=== PATIENT | female | born 1975 | race Asian ===

== ENCOUNTER 2021-01-07 16:15 | Emergency (ER) | payer OTHER ==
[2021-01-07 17:17] VITALS: TEMP 98.6
[2021-01-07] MEDS ORDERED: LORazepam 2 MG/ML INJ IV STA (18:38)
--- NOTE | 2021-01-07 18:42 | ED ---
General Adult HPI - General Chief complaint: Chest Pain Stated complaint: Abnormal EKG Time Seen by Provider: 01/07/21 18:15 Source: patient, RN notes reviewed, old records reviewed Mode of arrival: ambulatory Limitations: no limitations - History of Present Illness Initial comments: This is a 45-year-old female presents to the emergency department with no significant past medical history. Patient comes to the emergency department because she's been having some chest tightness for the last month and a half and she states over the last couple of years she's had similar chest tightness. Patient states is mostly in the center of her chest but occasionally it's in the back of both of her shoulders. Patient states in the past she's had massage is done and is felt better. Patient went and saw her primary medical care doctor today and she sent her into the emergency department to be evaluated. Patient states occasionally she feels some palpitations. Patient denies any fever chills or cough per patient did not difficulty flexing. Patient states she has no diaphoretic episodes. Patient denies nausea vomiting. Patient states she has a little bit of anxiety occasionally. Patient states anytime she has stress this feeling of tightness in her chest does get worse. Patient denies any swelling to the legs or calf tenderness. - Related Data Home Medications Medication Instructions Recorded Confirmed No Known Home Medications 01/07/21 01/07/21 Allergies Allergy/AdvReac Type Severity Reaction Status Date / Time Sulfa (Sulfonamide Allergy Unknown Verified 01/07/21 19:43 Antibiotics) Review of Systems ROS Statement: Those systems with pertinent positive or pertinent negative responses have been documented in the HPI. ROS Other: All systems not noted in ROS Statement are negative. Past Medical History Past Medical History: No Reported History History of Any Multi-Drug Resistant Organisms: None Reported Past Surgical History: Orthopedic Surgery Past Psychological History: No Psychological Hx Reported Smoking Status: Never smoker Past Alcohol Use History: None Reported Past Drug Use History: None Reported General Exam - General Exam Comments Initial Comments: GENERAL: Patient is well-developed and well-nourished. Patient is nontoxic and well- hydrated and is in no acute distress. ENT: Neck is soft and supple. No significant lymphadenopathy is noted. Oropharynx is clear. Moist mucous membranes. Neck has full range of motion without eliciting any pain. EYES: The sclera were anicteric and conjunctiva were pink and moist. Extraocular movements were intact and pupils were equal round and reactive to light. Ey elids were unremarkable. PULMONARY: Unlabored respirations. Good breath sounds bilaterally. No audible rales rhonchi or wheezing was noted. CARDIOVASCULAR: There is a regular rate and rhythm without any murmurs gallops or rubs. ABDOMEN: Soft and nontender with normal bowel sounds. SKIN: Skin is clear with no lesions or rashes and otherwise unremarkable. NEUROLOGIC: Patient is alert and oriented x3. Cranial nerves II through XII are grossly intact. Motor and sensory are also intact. Normal speech, volume and content. Symmetrical smile. MUSCULOSKELETAL: Normal extremities with adequate strength and full range of motion. No lower extremity swelling or edema. No calf tenderness. LYMPHATICS: No significant lymphadenopathy is noted PSYCHIATRIC: Mildly anxious Limitations: no limitations Course Vital Signs 01/07/21 01/07/21 17:14 18:54 Temperature 98.6 F Pulse Rate 106 H Pulse Rate [ 92 [employer] ] Respiratory 20 Rate Blood Pressure 121/77 O2 Sat by Pulse 97 Oximetry Medical Decision Making - Medical Decision Making EKG shows normal sinus rhythm at 86 bpm AL interval 120 QRS 74 QT interval 384 QTC is 459. EKG shows some slight ST segment depression in inferior leads. Patient also has T-wave inversions in V1 and V2 V3 in the 4 some flattening in V5 and 6 Patient was given Ativan emergency department to help relax her. Patient's chest x-ray showed no acute abnormality. It. Patient will follow-up with primary medical care doctor for further workup including echo and heart monitor and possibly a stress test. - Lab Data Result diagrams: 01/07/21 18:40 01/07/21 18:40 Lab Results 01/07/21 01/07/21 01/07/21 Range/Units 18:40 18:40 18:40 WBC 12.1 H (3.8-10.6) k/uL RBC 5.13 (3.80-5.40) m/uL Hgb 12.8 (11.4-16.0) gm/dL Hct 41.7 (34.0-46.0) % MCV 81.2 (80.0-100.0) fL MCH 24.9 L (25.0-35.0) pg MCHC 30.7 L (31.0-37.0) g/dL RDW 14.0 (11.5-15.5) % Plt Count 335 (150-450) k/uL MPV 6.7 Neutrophils % 85 % Lymphocytes % 10 % Monocytes % 3 % Eosinophils % 1 % Basophils % 0 % Neutrophils # 10.3 H (1.3-7.7) k/uL Lymphocytes # 1.3 (1.0-4.8) k/uL Monocytes # 0.4 (0-1.0) k/uL Eosinophils # 0.1 (0-0.7) k/uL Basophils # 0.1 (0-0.2) k/uL PT 10.4 (9.0-12.0) sec INR 1.0 (<1.2) APTT 26.6 (22.0-30.0) sec D-Dimer 0.30 (<0.60) mg/L FEU Sodium 138 (137-145) mmol/L Potassium 3.6 (3.5-5.1) mmol/L Chloride 104 (98-107) mmol/L Carbon Dioxide 22 (22-30) mmol/L Anion Gap 12 mmol/L BUN 5 L (7-17) mg/dL Creatinine 0.53 (0.52-1.04) mg/dL Est GFR (CKD-EPI)AfAm >90 (>60 ml/min/1.73 sqM) Est GFR (CKD-EPI)NonAf >90 (>60 ml/min/1.73 sqM) Glucose 100 H (74-99) mg/dL Calcium 9.3 (8.4-10.2) mg/dL Magnesium 1.9 (1.6-2.3) mg/dL Total Bilirubin 0.5 (0.2-1.3) mg/dL AST 23 (14-36) U/L ALT 11 (4-34) U/L Alkaline Phosphatase 107 (38-126) U/L Troponin I (0.000-0.034) ng/mL NT-Pro-B Natriuret Pep pg/mL Total Protein 8.5 H (6.3-8.2) g/dL Albumin 4.3 (3.5-5.0) g/dL 01/07/21 01/07/21 Range/Units 18:40 18:40 WBC (3.8-10.6) k/uL RBC (3.80-5.40) m/uL Hgb (11.4-16.0) gm/dL Hct (34.0-46.0) % MCV (80.0-100.0) fL MCH (25.0-35.0) pg MCHC (31.0-37.0) g/dL RDW (11.5-15.5) % Plt Count (150-450) k/uL MPV Neutrophils % % Lymphocytes % % Monocytes % % Eosinophils % % Basophils % % Neutrophils # (1.3-7.7) k/uL Lymphocytes # (1.0-4.8) k/uL Monocytes # (0-1.0) k/uL Eosinophils # (0-0.7) k/uL Basophils # (0-0.2) k/uL PT (9.0-12.0) sec INR (<1.2) APTT (22.0-30.0) sec D-Dimer (<0.60) mg/L FEU Sodium (137-145) mmol/L Potassium (3.5-5.1) mmol/L Chloride (98-107) mmol/L Carbon Dioxide (22-30) mmol/L Anion Gap mmol/L BUN (7-17) mg/dL Creatinine (0.52-1.04) mg/dL Est GFR (CKD-EPI)AfAm (>60 ml/min/1.73 sqM) Est GFR (CKD-EPI)NonAf (>60 ml/min/1.73 sqM) Glucose (74-99) mg/dL Calcium (8.4-10.2) mg/dL Magnesium (1.6-2.3) mg/dL Total Bilirubin (0.2-1.3) mg/dL AST (14-36) U/L ALT (4-34) U/L Alkaline Phosphatase (38-126) U/L Troponin I <0.012 (0.000-0.034) ng/mL NT-Pro-B Natriuret Pep 155 pg/mL Total Protein (6.3-8.2) g/dL Albumin (3.5-5.0) g/dL Disposition Clinical Impression: Atypical chest pain Disposition: HOME SELF-CARE Condition: Good Instructions (If sedation given, give patient instructions): Chest Pain (ED) Is patient prescribed a controlled substance at d/c from ED?: No Referrals: Ying Kent MD [Primary Care Provider] - 1-2 days Time of Disposition: 20:23
[2021-01-07 18:54] LABS: Basophils # (A) 0.1 k/uL (0-0.2); Basophils % (A) 0 %; Eosinophils # (A) 0.1 k/uL (0-0.7); Eosinophils % (A) 1 %; HCT 41.7 % (34.0-46.0); HGB 12.8 gm/dL (11.4-16.0); Lymphocytes # (A) 1.3 k/uL (1.0-4.8); Lymphocytes % (A) 10 %; MCH 24.9 pg (25.0-35.0); MCHC 30.7 g/dL (31.0-37.0); MCV 81.2 fL (80.0-100.0); Mean Platelet Volume 6.7; Monocytes # (A) 0.4 k/uL (0-1.0); Monocytes % (A) 3 %; Neutrophils # (A) 10.3 k/uL (1.3-7.7); Neutrophils % (A) 85 %; Platelet Count 335 k/uL (150-450); RBC 5.13 m/uL (3.80-5.40); WBC 12.1 k/uL (3.8-10.6)
[2021-01-07 19:10] LABS: ALT 11 U/L (4-34); AST 23 U/L (14-36); African American GFR (CKD) >90 (>60 ml/min/1.73 sqM); Albumin 4.3 g/dL (3.5-5.0); Alkaline Phosphatase 107 U/L (38-126); Anion Gap 12 mmol/L; Blood Urea Nitrogen 5 mg/dL (7-17); Calcium 9.3 mg/dL (8.4-10.2); Carbon Dioxide 22 mmol/L (22-30); Chloride 104 mmol/L (98-107); Glucose 100 mg/dL (74-99); Magnesium 1.9 mg/dL (1.6-2.3); Non-African American GFR(CKD) >90 (>60 ml/min/1.73 sqM); Potassium 3.6 mmol/L (3.5-5.1); Sodium 138 mmol/L (137-145); Total Bilirubin 0.5 mg/dL (0.2-1.3); Total Protein 8.5 g/dL (6.3-8.2)
[2021-01-07 19:15] LABS: Partial Thromboplastin Time 26.6 sec (22.0-30.0); Prothrombin Time 10.4 sec (9.0-12.0)
--- NOTE | 2021-01-07 20:04 | XR ---
EXAMINATION TYPE: XR chest 2V DATE OF EXAM: 01/07/2021 CLINICAL HISTORY: Chest Pain. TECHNIQUE: Frontal and lateral view of the chest. COMPARISON: None FINDINGS: The cardiomediastinal silhouette is within normal limits for size. Pulmonary vasculature i s normal. There is no focal air space opacity. No pleural effusion. No pneumothorax seen. No acute d isplaced osseous fracture. IMPRESSION: No acute cardiopulmonary process.
[2021-01-07 21:08] VITALS: BP 133/80; PULSE 78; RESP 16
== END 2021-01-07 21:07 | disposition home or self-care (01) ==
LOC: EC 16:15
DX: R07.89 Other chest pain (principal)
CPT/HCPCS: 36415; 93005; 85379; 83880; 80053; 83735; 84484; 85025; 85610; 85730; 71046; 99285; 96374; J2060